=== PATIENT | female | born 1990 | race Native Hawaiian/Other Pacific Islander ===

== ENCOUNTER 2017-01-16 04:39 | Emergency (ER) | payer OTHER ==
[~2017-01-16] VITALS: Ht 162.6 cm; Wt 136.1 kg
== END 2017-01-16 06:12 | disposition home or self-care (01) ==
LOC: ED 04:39
DX: M54.5 Low back pain (principal); M54.31 Sciatica, right side
CPT/HCPCS: 36415; 81000; 96372; 99283; J1885